=== PATIENT | female | born 1940 | race Two or more races ===

== ENCOUNTER 2017-02-15 13:39 | Inpatient (IN) | payer MEDICARE, MEDICAID ==
[~2017-02-15] VITALS: Ht 152.4 cm; Wt 66.0 kg
[2017-02-15 15:12] LABS: Basophils # (auto) 0 uL; Basophils % (auto) 0.4 % (0.0-2.0); Eosinophils # (auto) 0.2 uL; Eosinophils % (auto) 2.1 % (0.0-7.0); Hematocrit 44.2 % (36.0-46.0); Hemoglobin 14.2 g/dL (12.2-16.2); Lymphocytes # (auto) 2.6 uL; Lymphocytes % (auto) 25.8 % (10.0-50.0); Mean Corpuscular Hemoglobin 27.5 pg (28.0-32.0); Mean Corpuscular Hgb Conc. 32.1 g/dL (32.0-36.0); Mean Corpuscular Volume 85.6 fL (80.0-100.0); Mean Platelet Volume 10.8 fL (7.4-10.4); Monocytes # (auto) 0.5 uL; Monocytes % (auto) 4.9 % (0.0-12.0); Neutrophils # (auto) 6.7 uL; Neutrophils % (auto) 66.8 % (37.0-80.0); Platelet Count (auto) 243 10^3/uL (140-450); Red Cell Distribution Width 13.8 % (11.6-16.0); SUSPECT VIEW TRANSMISSION; White Blood Cell 10.1 10^3/uL (4.4-10.8)
[2017-02-15 15:32] LABS: INR 0.95 (0.9-1.15); Partial Thromboplastin Time 28.2 sec (22.64-33.71); Prothrombin Time 10.3 sec (9.37-12.3)
[2017-02-15 15:35] LABS: Albumin 3.9 g/dL (3.4-5.0); Bilirubin, Total 0.3 mg/dL (0.2-1.0); Calcium 9.5 mg/dL (8.5-10.1); Potassium 4.2 mmol/L (3.5-5.1); Total Protein 8.1 g/dL (6.4-8.2)
[2017-02-15] MEDS ORDERED: ASPirin 81 mg TAB PO ONE (23:45)
[2017-02-16] VITALS (8 sets, daily range): BP systolic 119–166; BP diastolic 51–74
[2017-02-16] MEDS ORDERED: ONDANSETRON HCL 4 MG/2 ML VIAL IV PRN (02:00)
[2017-02-16] MEDS ORDERED: HYDROcodone-ACET 5/325MG TAB PO PRN (02:00)
[2017-02-16] MEDS ORDERED: ENOXAPARIN SOD 40 MG/0.4 ML SYRINGE SC ONE (02:00)
[2017-02-16] MEDS ORDERED: DEXTROSE (50%) 50ML SYRG IV PRN (02:00)
[2017-02-16] MEDS ORDERED: NITROGLYCERIN 0.4 MG SL TAB SL PRN (02:00)
[2017-02-16] MEDS ORDERED: ACETAMINOPHEN 325 MG TAB PO PRN (02:00)
[2017-02-16] MEDS ORDERED: ASPirin 81 mg TAB PO ONE (02:00)
[2017-02-16] MEDS ORDERED: MORPHINE SULF INJ 2 MG/ML SYRINGE 1ML IV PRN (02:00)
[2017-02-16] MEDS: cloNIDine HCL 0.1 MG TAB PO PRN ×2 (02:31→17:48)
[2017-02-16 03:06] LABS: Cholesterol 114 mg/dL (< 200); HDL Cholesterol 42 mg/dL (40-59); LDL Cholesterol 61 mg/dL (< 100); Triglycerides 136 mg/dL (< 150)
[2017-02-16] MEDS ORDERED: DAPA1TAB2 PO (03:59)
[2017-02-16] MEDS ORDERED: ATOR20TA PO (03:59)
[2017-02-16] MEDS ORDERED: ASPI81TA27 PO (03:59)
[2017-02-16] MEDS ORDERED: GABA-494 PO (03:59)
[2017-02-16] MEDS ORDERED: ATEN50TA PO (03:59)
[2017-02-16] MEDS ORDERED: LOSA100T27 PO (03:59)
[2017-02-16] MEDS: InsuLIN REG 1unit/0.01ml Soln (100units/ml) SC SCH ×3 (05:50→17:49)
[2017-02-16] MEDS: ACCU-CHEK COMFORT CURVE STRIP VI SCH ×3 (05:50→17:49)
[2017-02-16] MEDS ORDERED: LORazepam 2MG/ML-1ML VIAL IV PRN (08:45)
[2017-02-16] MEDS: ASPirin 325 MG TAB PO SCH (10:14)
[2017-02-16] MEDS: FAMOTIDINE 20 MG TAB PO SCH ×2 (10:15→21:37)
[2017-02-16] MEDS: ATORVASTATIN 20 MG TAB PO SCH (21:38)
[2017-02-16] MEDS ORDERED: ATORVASTATIN 20 MG TAB PO SCH (22:00)
[2017-02-17 05:30] VITALS: BP 137/63
[2017-02-17 06:16] LABS: Basophils # (auto) 0 uL; Basophils % (auto) 0.3 % (0.0-2.0); Eosinophils # (auto) 0.1 uL; Hematocrit 41.2 % (36.0-46.0); Hemoglobin 13.4 g/dL (12.2-16.2); Lymphocytes # (auto) 2.1 uL; Lymphocytes % (auto) 20.6 % (10.0-50.0); Mean Corpuscular Hemoglobin 27.8 pg (28.0-32.0); Mean Corpuscular Hgb Conc. 32.6 g/dL (32.0-36.0); Mean Corpuscular Volume 85.3 fL (80.0-100.0); Mean Platelet Volume 11.6 fL (7.4-10.4); Monocytes # (auto) 0.8 uL; Monocytes % (auto) 8.2 % (0.0-12.0); Neutrophils % (auto) 69.9 % (37.0-80.0); Platelet Count (auto) 220 10^3/uL (140-450); Red Cell Distribution Width 13.8 % (11.6-16.0)
[2017-02-17 06:32] LABS: Potassium 3.9 mmol/L (3.5-5.1)
[2017-02-17 06:37] LABS: Albumin 3.5 g/dL (3.4-5.0); BUN/Creatinine Ratio 36.6
[2017-02-17 06:40] LABS: Bilirubin, Total 0.4 mg/dL (0.2-1.0); Total Protein 7.1 g/dL (6.4-8.2)
[2017-02-17] MEDS: ACCU-CHEK COMFORT CURVE STRIP VI SCH ×4 (06:51→17:33)
[2017-02-17] MEDS: InsuLIN REG 1unit/0.01ml Soln (100units/ml) SC SCH ×4 (06:55→17:47)
[2017-02-17 08:00] VITALS: BP 136/64
[2017-02-17 09:00] VITALS: BP 136/64
[2017-02-17] MEDS: ENOXAPARIN SOD 40 MG/0.4 ML SYRINGE SC SCH (09:49)
[2017-02-17] MEDS: ASPirin 325 MG TAB PO SCH (09:49)
[2017-02-17] MEDS: FAMOTIDINE 20 MG TAB PO SCH ×2 (09:49→22:21)
[2017-02-17] MEDS: FARXIGA 5 MG PO SCH (16:49)
[2017-02-17 17:00] VITALS: BP 154/92
[2017-02-17] MEDS ORDERED: GABAPENTIN 100 MG CAP PO ONE (17:00)
[2017-02-17] MEDS ORDERED: LOSARTAN POTASSIUM 50 MG TAB PO ONE (17:00)
[2017-02-17] MEDS: ATENOLOL 50 MG TAB PO SCH (17:28)
[2017-02-17 20:00] VITALS: BP 160/72
[2017-02-17 22:00] VITALS: BP 160/72
[2017-02-17] MEDS: ATORVASTATIN 20 MG TAB PO SCH (22:21)
[2017-02-18] VITALS (7 sets, daily range): BP systolic 124–152; BP diastolic 60–83
[2017-02-18] MEDS: InsuLIN REG 1unit/0.01ml Soln (100units/ml) SC SCH ×4 (06:00→18:16)
[2017-02-18] MEDS: ACCU-CHEK COMFORT CURVE STRIP VI SCH ×4 (06:00→18:15)
[2017-02-18] MEDS: FAMOTIDINE 20 MG TAB PO SCH ×2 (10:00→22:00)
[2017-02-18] MEDS ORDERED: FARXIGA 5 MG PO SCH (10:00)
[2017-02-18] MEDS ORDERED: ATENOLOL 50 MG TAB PO SCH (10:00)
[2017-02-18] MEDS: FARXIGA 5 MG PO SCH (10:00)
[2017-02-18] MEDS: ASPirin 325 MG TAB PO SCH (10:47)
[2017-02-18] MEDS: ATENOLOL 50 MG TAB PO SCH (10:47)
[2017-02-18] MEDS: GABAPENTIN 100 MG CAP PO SCH (10:47)
[2017-02-18] MEDS: LOSARTAN POTASSIUM 50 MG TAB PO SCH (10:47)
[2017-02-18] MEDS: ENOXAPARIN SOD 40 MG/0.4 ML SYRINGE SC SCH (10:49)
[2017-02-18] MEDS: ATORVASTATIN 20 MG TAB PO SCH (22:00)
[2017-02-19 05:00] VITALS: BP 128/72
[2017-02-19] MEDS: ACCU-CHEK COMFORT CURVE STRIP VI SCH ×3 (06:00→12:00)
[2017-02-19] MEDS: InsuLIN REG 1unit/0.01ml Soln (100units/ml) SC SCH ×3 (06:00→12:57)
[2017-02-19] MEDS: GABAPENTIN 100 MG CAP PO SCH (09:46)
[2017-02-19] MEDS: ASPirin 325 MG TAB PO SCH (09:46)
[2017-02-19] MEDS: FAMOTIDINE 20 MG TAB PO SCH (09:47)
[2017-02-19] MEDS: ATENOLOL 50 MG TAB PO SCH (09:47)
[2017-02-19] MEDS: LOSARTAN POTASSIUM 50 MG TAB PO SCH (09:47)
[2017-02-19] MEDS: ENOXAPARIN SOD 40 MG/0.4 ML SYRINGE SC SCH (09:48)
[2017-02-19] MEDS: FARXIGA 5 MG PO SCH (09:51)
== END 2017-02-19 14:00 | DRG 65 ==
LOC: ER 13:39 → TELE 13:40 → TELE-WESTW 02-16 02:47 → WEST WING 02-17 16:57
PROVIDERS: ADMIT Internal Medicine; ATTEND Internal Medicine
DX: I63.9 Cerebral infarction, unspecified (principal); G81.91 Hemiplegia, unspecified affecting right dominant side; E11.42 Type 2 diabetes mellitus with diabetic polyneuropathy; I11.9 Hypertensive heart disease without heart failure; Z79.899 Other long term (current) drug therapy; Z82.49 Family history of ischemic heart disease and other diseases of the circulatory system; Z83.3 Family history of diabetes mellitus
CPT/HCPCS: 36415; 70450; 70551; 80053; 80061; 82962; 84484; 85025; 85610; 85730; 93005; 93306; 93886; 96372; J1815